=== PATIENT | male | born 1960 | race Caucasian/White ===

== ENCOUNTER 2018-10-01 01:44 | Outpatient (CLI) | payer BC ==
[2018-10-01 18:23] LABS: Bilirubin Negative (Negative); Blood, Urine Negative (Negative); Clarity CLEAR (Clear); Glucose, Urine (Dipstick) Negative (Negative); Leukocyte Negative (Negative); Nitrite Negative (Negative); Protein, Urine (Dipstick) Negative (Neg-Trace); Specific Gravity, Urine 1.014 (1.002-1.036); Urobilinogen 0.2 mg/dL (0.2-1.0); pH, Urine 5.5 (5.0-9.0)
[2018-10-01 18:24] LABS: #Basophils 0.1 thou/uL (0.0-0.2); #Eosinphils 0.2 thou/uL (0.0-0.7); #Lymphocytes 2.5 thou/uL (1.20-3.40); #Monocytes 0.8 thou/uL (0.11-0.59); #Neutrophils 4.7 thou/uL (1.40-6.50); %Basophils 0.9 % (0.0-1.0); %Eosinophils 1.9 % (0.0-10.0); %Lymphocytes 30.3 % (21.0-51.0); %Monocytes 9.2 % (0.0-10.0); %Neutrophils 57.7 % (42.0-75.0); Bacteria/HPF None Seen HPF (None Seen); Hyaline Casts/LPF 0-3 HYALINE CAST LPF (0-3 Hyaline); Mean Corpuscular HGB CONC 33.8 g/dL (32.0-36.0); Mean Corpuscular Hemoglobin 29.3 pg (27.0-31.0); Mean Corpuscular Volume 86.8 fL (78.0-98.0); Mean Platelet Volume 6.5 fL (7.4-10.4); Platelet Count 277 thou/uL (130-400); RBC Distribution Width 11.4 % (11.5-14.5); RBC/HPF 0-3 HPF (0-3); Red Blood Cell (RBC) Count 4.77 mill/uL (4.70-6.10); Squamous Epithelial None Seen HPF (0-3); WBC/HPF None Seen HPF (0-3); White Blood Cell (WBC) Count 8.2 thou/uL (4.8-10.8)
[2018-10-01 18:41] LABS: Anion Gap 13 mmol/L (10-20); BUN (Urea Nitrogen) 18 mg/dL (8.4-25.7); Calc. Creatinine Clearance 0 mL/min (70-130); Calcium 9.2 mg/dL (7.8-10.44); Carbon Dioxide 26 mmol/L (22-29); Chloride 104 mmol/L (98-107); Estimated GFR-MDRD 73; Glucose 100 mg/dL (70-105); Sodium 139 mmol/L (136-145)
--- NOTE | 2018-10-03 09:19 | EKG ---
Test Reason : Blood Pressure : / mmHG Vent. Rate : 068 BPM Atrial Rate : 068 BPM P-R Int : 142 ms QRS Dur : 096 ms QT Int : 422 ms P-R-T Axes : -02 041 048 degrees QTc Int : 448 ms Normal sinus rhythm Normal ECG When compared with ECG of 19-OCT-2012 10:40, No significant change was found Confirmed by HAZEL KRUSE, SIsacc ([id number]) on 10/03/2018 9:19:17 AM Referred By: GILA Confirmed By:DR. Caitlin OLIVA MD
== END 2018-10-01 01:45 | disposition home or self-care (01) ==
LOC: LABBT 01:44
PROVIDERS: ATTEND Orthopaedic Surgery
DX: Z01.818 Encounter for other preprocedural examination (principal); T84.098A Other mechanical complication of other internal joint prosthesis, initial encounter
CPT/HCPCS: 80048; 81001; 85025; 87081; 93005; 93010

== ENCOUNTER 2018-10-01 17:00 | Inpatient (IN) | payer BC ==
[2018-10-01 17:11] VITALS: BMI 25.1
[2018-10-09] MEDS ORDERED: Clindamycin/D5W 600 mg/50 ml Premix Bag ONE (06:25)
[2018-10-09] MEDS ORDERED: Clindamycin/D5W 600 MG in Premix Bag 1 BAG IVPB ONE (06:30)
[2018-10-09] MEDS ORDERED: Vancomycin HCl 1.5 GM in Sodium Chloride 0.9% 250 ML 300 ML IVPB ONE (06:30)
[2018-10-09] MEDS ORDERED: Midazolam HCl 2 mg/2 ml Vial ONE (06:33)
[2018-10-09] MEDS ORDERED: Fentanyl 100 MCG/2 ML VIAL ONE ×2 (06:33→07:01)
[2018-10-09] MEDS ORDERED: Ondansetron PF 4 MG/2 ML Vial IVP PRN (10:06)
[2018-10-09] MEDS ORDERED: Bisacodyl 10 MG SUPP PR PRN (10:06)
[2018-10-09] MEDS ORDERED: traMADol HCl 50 MG TAB PO PRN (10:06)
[2018-10-09] MEDS ORDERED: Milk Of Magnesia 30 ML UDCUP PO PRN (10:06)
[2018-10-09] MEDS ORDERED: Zolpidem Tartrate 5 MG TAB PO PRN (10:06)
[2018-10-09] MEDS ORDERED: diphenhydrAMINE 50 MG CAP PO PRN (10:06)
[2018-10-09] MEDS ORDERED: Acetaminophen 325 MG TAB PO PRN (10:06)
[2018-10-09] MEDS ORDERED: Morphine 2 MG/ML SYRINGE SLOW IVP PRN (10:06)
[2018-10-09] MEDS ORDERED: HYDROcodone/Acetaminophen 10/325 mg Tablet PO PRN ×2 (10:06)
[2018-10-09] MEDS ORDERED: Methocarbamol 1 GM/10 ML VIAL SLOW IVP PRN (10:06)
[2018-10-09] MEDS: Dextrose 5 %-0.45 % NaCl 1,000 ML IV SCH (15:03)
[2018-10-09] MEDS: Clindamycin/D5W 900 MG in Premix Bag 1 BAG IVPB SCH ×2 (15:05→18:49)
[2018-10-09] MEDS ORDERED: Vancomycin HCl 1.5 GM in Sodium Chloride 0.9% 250 ML 300 ML IVPB SCH (18:30)
[2018-10-09] MEDS: Famotidine 20 MG TAB PO SCH (20:07)
[2018-10-09] MEDS: CeleCOXIB 100 MG CAP PO SCH (20:07)
[2018-10-10] MEDS: Dextrose 5 %-0.45 % NaCl 1,000 ML IV SCH ×2 (00:33→06:12)
--- NOTE | 2018-10-10 07:24 | OP ---
DATE OF PROCEDURE: 10/09/2018 PREOPERATIVE DIAGNOSIS: Right failed total shoulder replacement. 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 PROCEDURE PERFORMED: Right shoulder open removal of glenoid as well as debridement of the joint as well as placement of new humeral head, which was 46 mm x 17 mm as well as placement and grafting of the glenoid with Pro-Dense injectable calcium sulfate/calcium phosphate. STATE TESTED NURSING ASSISTANT: Dr. Siu. BLOOD LOSS: 250 mL of blood. ANESTHESIA: The patient did have a general anesthetic as well as a block preoperatively. IMPLANTS: Two implants that were placed were [employer] Pro-Dense in the glenoid and a new humeral head, which was 46 x 17. DISPOSITION: He did go to recovery room in stable condition. INDICATIONS: This 58-year-old male had his shoulder replaced approximately eight years ago. The patient has been having problems for over a year and finally came into the office, was found to have an abnormal appearance of his prosthesis on x-ray with loosening of his glenoid as well as what appeared to be significant loss of bone on CT scan and at this time opted to have revision surgery. DESCRIPTION OF PROCEDURE: After all consent forms were explained and signed, he was taken to the operating room and at this time was given general anesthetic. Once the level of anesthesia was appropriate, he was placed in a modified beach chair position with all bony prominences well padded. Beanbag was inflated to hold him in this position, so he would not fall off the table. At this time, the right shoulder and upper extremity were prepped and draped in standard surgical fashion. Previous incision was used and cut down through with a 10 blade. Bovie was used to clear any brisk venous bleeding. With significant amount of scar tissue, what we believed to be the deltopectoral interval was found. No vein was found. We then got to the underlying tissue layer. Deltoid was freed up on its undersurface and at this time, conjoint tendon was found. We then were able to separate the conjoint tendon from the underlying subscapularis. We were able to visualize previously placed sutures. At this time, we then used a blade and cut down into the joint, leaving a tag of subscapularis and capsule laterally on the humerus. Medial capsule was tagged with multiple interrupted #5 Ethibond sutures. At this time, joint fluid was expressed as well as what appeared to be some fibrinous tissue. This was sent for culture and sensitivity. We also took some tissue and sent it to Pathology for an intraoperative evaluation to evaluate the tissue for white blood cells per high-power field by the pathologist. Approximately 25 to 30 minutes later, we did receive a phone call that this was negative for any signs of infection. At this time, we then tried to free up the humeral portion of the prosthesis to remove the head. We removed scar tissue circumferentially from around the head trying to free this up. The joint was found to be very tight. This was done slowly as to not have any type of iatrogenic fracture or injury. We were then able to pop off the head. Prosthesis appeared to be stable, it did not move. There was no significant osteolysis around the prosthesis. 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 The glenoid was found to be in one piece; however, the superior 30% to 35% was found to be extremely thin in nature and it was presumed that the particles led to some aseptic loosening in the glenoid vault as there was a significant amount of bone loss in the glenoid vault. This was cleaned out with irrigation and curettes and rongeur. At this time, our plan was to inject [employer] Pro-Dense into this defect and trying to obtain some bone over the next 6 to 12 months in order to return and place in the glenoid. Again, the patient is only in the mid 50s and is still working. Therefore, in preparation for this, the wound was thoroughly irrigated and dried. Pro-Dense was mixed on the back table and was then injected into the cavity. We then spent greater than 30 minutes allowing this to dry. We then decided to use a new head, which was a 46 rather than a 43 secondary to there being no glenoid at this time. This was impacted on and found to have a good fit. Once this was done, the shoulder was located. We then took the previously placed #5 Ethibond and repaired our subscapularis. We then also placed couple #1 Ethibond to repair our rotator interval. We then thoroughly irrigated our superficial tissues and dried. We then used 2-0 Vicryl and multiple interrupted Prolene to close skin. At this time, a bulky sterile dressing was applied, and the patient was awakened and taken to recovery room in stable condition. All counts were correct at the end of the case, and he did receive preoperative IV antibiotics. Job ID: [id number]
[2018-10-10 08:06] VITALS: BP 112/72; TEMP 97.7
[2018-10-10] MEDS: Famotidine 20 MG TAB PO SCH (09:18)
[2018-10-10] MEDS: CeleCOXIB 100 MG CAP PO SCH (09:18)
== END 2018-10-10 11:16 | disposition home or self-care (01) | DRG 483 ==
LOC: SURG A 10-09 06:13
PROVIDERS: ADMIT Orthopaedic Surgery; ATTEND Orthopaedic Surgery
PROC: 0RRJ0JZ Replacement of Right Shoulder Joint with Synthetic Substitute, Open Approach (ICD-10-PCS; principal; 2018-10-09)
DX: T84.038A Mechanical loosening of other internal prosthetic joint, initial encounter (principal)
CPT/HCPCS: 86850; 86900; 86901; 87070; 87205; 88305; 88331; J2250; J3010; J3370; J3490; J7050